=== PATIENT | male | born 1945 | race Caucasian/White ===

== ENCOUNTER 2016-10-15 14:21 | Inpatient (IN) | payer OTHER, MEDICAID ==
--- NOTE | 2016-10-15 14:35 | EDPHY ---
H & P Time Seen by Provider: 10/15/16 14:24 HPI/ROS: CHIEF COMPLAINT: Suicidal ideation HISTORY OF PRESENT ILLNESS: The patient is a 71-year-old male who presents emergency department with suicidal ideation. He presented to the [facility] complaining of heroin and opiate use. He is placed in their detox. While there he complains suicidal ideation. He states he wants to hang himself. Patient uses heroin regularly. He uses meth once a week. He denies overdose ingestion. He is not using alcohol. He placed on a mental health hold and sent to the emergency department. REVIEW OF SYSTEMS: My complete review of systems is negative except as mentioned in the HPI. Past Medical/Surgical History: Includes hypertension, peripheral neuropathy, chronic pain, BPH, depression Social history: The patient uses meth, heroin Physical Exam: Vitals noted GENERAL: No acute distress, alert. HEENT: Eyes normal to inspection, normal pharynx, no signs of dehydration. NECK: No thyromegaly, no lymphadenopathy, supple. RESPIRATORY: Clear to auscultation bilaterally, no rales, rhonchi or wheezing. CVS: Regular rate and rhythm, no rubs, murmurs, or gallops. ABDOMEN: Soft, nontender, nondistended, no organomegaly. BACK: Normal to inspection, no CVA tenderness. SKIN: Normal color, no rash, warm, dry. No pallor. Multiple lesions on bilateral forearms from injections. No erythema. No fluctuance. EXTREMITIES: No pedal edema, no calf tenderness, no Homans sign or cords, no joint swelling. NEURO/PSYCH: Alert and oriented, normal mood and affect, cooperative, normal motor sensory exam. No obvious cranial nerve deficit. Constitutional: Initial Vital Signs Temperature (C) 37.2 C 10/15/16 14:21 Heart Rate 62 10/15/16 14:21 Respiratory Rate 16 10/15/16 14:21 Blood Pressure 153/92 H 10/15/16 14:21 O2 Sat (%) 98 10/15/16 14:21 O2 Delivery Mode Room Air Allergies/Adverse Reactions: No Known Allergies Allergy (Unverified 10/15/16 14:31) Home Medications: Medication Instructions Recorded Acetaminophen [Tylenol 325mg (*)] 650 mg PO TID 10/15/16 Chlorthalidone [Chlorthalidone 25 25 mg PO DAILY 10/15/16 mg (*)] Escitalopram Oxalate [Lexapro] 10 mg PO DAILY 10/15/16 Gabapentin [Neurontin 400 MG (*)] 400 mg PO QID 10/15/16 Lisinopril [Zestril 40 mg (*)] 20 mg PO DAILY 10/15/16 Naproxen 500 mg PO BID PRN 10/15/16 QUEtiapine FUMARATE [Seroquel 100 150 mg PO HS 10/15/16 mg (*)] Sodium Cl Nasal [[facility] [place] (*)] 2 spray NS BID 10/15/16 Tamsulosin HCl [Flomax 0.4 MG (*)] 0.4 mg PO HS 10/15/16 traZODone [traZODONE 50MG (*)] 50 - 150 mg PO HS PRN 10/15/16 Medical Decision Making ED Course/Re-evaluation: In the emergency department I met the patient on arrival. I discussed the plan with the patient. He is aware he is on a mental health hold. He will have laboratory studies for medical clearance. I reviewed the patient's laboratory studies. Sodium was low 121. Potassium is 3.4. Chloride was low at 83. ASA, Tylenol negative. Patient's CBC was rejected. It will be resent. I discussed the results with the patient. Based on these labs normal saline 500 mL IV were given. Sinus rhythm at 58. First-degree AV block. Normal axis. No ST or T-wave abnormalities. I rechecked the patient on numerous occasions. He was stable during stay. I answered all his questions. Differential Diagnosis: My differential includes but is not limited to depression, suicidal ideation, meth abuse, heroin abuse, cellulitis, abscess Critical Care Time: Patient required 35 minutes of critical care time. This was exclusive of any unbundled procedure. This was due to the patient's depression, suicidal ideation, significant hyponatremia, need for frequent rechecks, admission to the ICU in consultation with the production director Dr. Brownlee. - Data Points Laboratory Results: Laboratory Results 10/15/16 16:20 10/15/16 15:07 10/15/16 10/15/16 10/15/16 16:20 16:12 15:07 WBC 14.36 10^3/uL H 10^3/uL (3.80-9.50) RBC 5.30 10^6/uL 10^6/uL (4.40-6.38) Hgb 16.9 g/dL g/dL (13.7-17.5) Hct 45.7 % % (40.0-51.0) MCV 86.2 fL fL (81.5-99.8) MCH 31.9 pg pg (27.9-34.1) MCHC 37.0 g/dL H g/dL (32.4-36.7) RDW 12.1 % % (11.5-15.2) Plt Count 353 10^3/uL 10^3/uL (150-400) MPV 9.9 fL fL (8.7-11.7) Neut % (Auto) 60.5 % % (39.3-74.2) Lymph % (Auto) 32.3 % % (15.0-45.0) Placer % (Auto) 5.6 % % (4.5-13.0) Eos % (Auto) 0.5 % L % (0.6-7.6) Baso % (Auto) 0.3 % % (0.3-1.7) Nucleat RBC Rel Count 0.0 % % (0.0-0.2) Absolute Neuts (auto) 8.68 10^3/uL H 10^3/uL (1.70-6.50) Absolute Lymphs (auto) 4.64 10^3/uL H 10^3/uL (1.00-3.00) Absolute Monos (auto) 0.81 10^3/uL H 10^3/uL (0.30-0.80) Absolute Eos (auto) 0.07 10^3/uL 10^3/uL (0.03-0.40) Absolute Basos (auto) 0.05 10^3/uL 10^3/uL (0.02-0.10) Absolute Nucleated RBC 0.00 10^3/uL 10^3/uL (0-0.01) Immature Gran % 0.8 % % (0.0-1.1) Immature Gran # 0.11 10^3/uL H 10^3/uL (0.00-0.10) Platelet Estimate ADEQUATE (ADEQ) Sodium 121 mEq/L L mEq/L (134-144) Potassium 3.4 mEq/L L mEq/L (3.5-5.2) Chloride 83 mEq/L L mEq/L (97-110) Carbon Dioxide 25 mEq/l mEq/l (22-31) Anion Gap 13 mEq/L mEq/L (8-16) BUN 12 mg/dL mg/dL (7-23) Creatinine 1.0 mg/dL mg/dL (0.7-1.3) Estimated GFR > 60 Glucose 119 mg/dL H mg/dL (70-100) Calcium 10.0 mg/dL mg/dL (8.5-10.4) Salicylates < 1.0 mg/dL L mg/dL (2.0-20.0) Urine Opiates Screen NEGATIVE (NEGATIVE) Acetaminophen < 10 mcg/mL L mcg/mL (10.0-30.0) Urine Barbiturates NEGATIVE (NEGATIVE) Ur Phencyclidine Scrn NEGATIVE (NEGATIVE) Ur Amphetamine Screen NEGATIVE (NEGATIVE) U Benzodiazepines Scrn NEGATIVE (NEGATIVE) Urine Cocaine Screen NEGATIVE (NEGATIVE) U Marijuana (THC) Screen NEGATIVE (NEGATIVE) Ethyl Alcohol < 10 mg/dL mg/dL (0-10) 10/15/16 15:07 WBC REJ RBC REJ Hgb REJ Hct REJ MCV REJ MCH REJ MCHC REJ RDW REJ Plt Count REJ MPV REJ Neut % (Auto) REJ Lymph % (Auto) REJ Placer % (Auto) REJ Eos % (Auto) REJ Baso % (Auto) REJ Nucleat RBC Rel Count REJ Absolute Neuts (auto) REJ Absolute Lymphs (auto) REJ Absolute Monos (auto) REJ Absolute Eos (auto) REJ Absolute Basos (auto) REJ Absolute Nucleated RBC REJ Immature Gran % REJ Immature Gran # REJ Platelet Estimate Sodium Potassium Chloride Carbon Dioxide Anion Gap BUN Creatinine Estimated GFR Glucose Calcium Salicylates Urine Opiates Screen Acetaminophen Urine Barbiturates Ur Phencyclidine Scrn Ur Amphetamine Screen U Benzodiazepines Scrn Urine Cocaine Screen U Marijuana (THC) Screen Ethyl Alcohol Medications Given: Discontinued Medications Sodium Chloride (Ns) 500 mls @ 0 mls/hr IV ONCE ONE PRN Reason: Wide Open Stop: 10/15/16 16:16 Last Admin: 10/15/16 17:13 Dose: 500 mls Ibuprofen (Motrin) 600 mg PO ONCE ONE Stop: 10/15/16 16:07 Last Admin: 10/15/16 16:13 Dose: 600 mg Departure - Departure Disposition: [facility] Acute Clinical Impression: Suicidal ideation, Hyponatremia Depression Qualifiers: Depression Type: unspecified Qualified Code(s): F32.9 - Major depressive disorder, single episode, unspecified Condition: Good
[2016-10-15 15:46] LABS: ANION GAP 13 mEq/L (8-16); CARBON DIOXIDE 25 mEq/l (22-31); CHLORIDE 83 mEq/L (97-110); ETHANOL SERUM < 10 mg/dL (0-10); GLOMERULAR FILTRATION RATE > 60; GLUCOSE 119 mg/dL (70-100); POTASSIUM 3.4 mEq/L (3.5-5.2); SALICYLATE < 1.0 mg/dL (2.0-20.0); SODIUM 121 mEq/L (134-144)
[2016-10-15] MEDS ORDERED: IBUPROFEN 600 MG TAB PO ONE (16:06)
[2016-10-15] MEDS ORDERED: NS 500 ML IV ONE ×2 (16:15→21:20)
--- NOTE | 2016-10-15 16:40 | CPEKG ---
Heart Rate: 58 RR Interval: 1034 P-R Interval: 248 QRSD Interval: 112 QT Interval: 484 QTC Interval: 476 P [place]: 21 QRS [place]: 52 T Wave [place]: 41 EKG Severity - ABNORMAL ECG - EKG Impression: SINUS RHYTHM EKG Impression: ATRIAL PREMATURE COMPLEX EKG Impression: FIRST DEGREE AV BLOCK EKG Impression: NONSPECIFIC INTRAVENTRICULAR CONDUCTION DELAY Electronically Signed By: Juan Perales 17-Oct-2016 09:02:10
[2016-10-15] MEDS ORDERED: ONDANSETRON 4 MG/2 ML VIAL IVP PRN (17:04)
[2016-10-15] MEDS ORDERED: ONDANSETRON DISINTEGRATING 4 MG TAB PO PRN (17:04)
[2016-10-15] MEDS ORDERED: PROMETHAZINE HCL 25 MG/ML INJ IVP PRN (17:04)
[2016-10-15 17:13] LABS: % IMMATURE GRANULYOCYTES 0.8 % (0.0-1.1); ABSOLUTE IMMATURE GRANULOCYTES 0.11 10^3/uL (0.00-0.10); ADD DIFF? NO; HEMATOCRIT 45.7 % (40.0-51.0); HEMOGLOBIN 16.9 g/dL (13.7-17.5); MEAN CELL HEMOGLOBIN 31.9 pg (27.9-34.1); MEAN CELL VOLUME 86.2 fL (81.5-99.8); MEAN PLATELET VOLUME 9.9 fL (8.7-11.7); PLATELET COUNT 353 10^3/uL (150-400); RED CELL DISTRIBUTION WIDTH 12.1 % (11.5-15.2)
[2016-10-15 17:14] LABS: ADD SCAN? NO
[2016-10-15 17:15] LABS: ADD MORPH? NO
[2016-10-15 17:16] LABS: PLATELET ESTIMATE ADEQUATE (ADEQ)
--- NOTE | 2016-10-15 17:52 | GHP ---
[f rep st] HISTORY AND PHYSICAL DATE OF ADMISSION: 10/15/2016 The patient is a pleasant 71-year-old gentleman, history of hypertension, neuropathy, and heroin use , who complained of suicidality at the and they brought him here. He said he wanted to h ang himself. When I speak with the patient, he is emotional, a bit sad. It sounds like his drug use has led to a loss of his home and friends, and mostly the whole community of his life. He attributes the heroin use to a severe peripheral neuropathy, for which he had been taking oral opiates, and then a change in provider led to lower doses. He also notes using meth once a week. When I speak with the patient, he feels somewhat confused. I t sounds like he has had some soft stools, has not been eating or drinking very well. I think he is currently homeless. He has no previous history of homelessness. He does take a thiazide diuretic. He has no previous history of hyponatremia. REVIEW OF SYSTEMS: Complete 10-point review of systems conducted, negative except as noted in the H PI. PAST MEDICAL HISTORY: Heroin use, neuropathy, hypertension, BPH. ALLERGIES: No known drug allergies. MEDICATIONS: Chlorthalidone, Flomax, Lexapro, lisinopril, Seroquel. It is not clear that he is on Neurontin or other such medications. 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 FAMILY HISTORY: Reviewed and unremarkable. PHYSICAL EXAMINATION: VITAL SIGNS: Temp 37.2, blood pressure 150/90, pulse 60, breathing 16 times a minute, 98% on room air. GENERAL: No acute distress. HEENT: Sclerae anicteric. Oropharynx rogelio ar. Mucous membranes moist. NECK: Supple without lymphadenopathy or JVD. LUNGS: Clear to auscul tation bilaterally. HEART: S1, S2. ABDOMEN: Soft, nontender, nondistended. LOWER EXTREMITIES: No edema. Calves nontender. SKIN: Without rash. NEUROLOGIC: Nonfocal. LABORATORY DATA: Sodium 121, potassium 3.4, chloride 83, bicarb 25, BUN 12, creatinine 1.0, glucose 119. Tox screen negative, including Tylenol, salicylates, ethanol. CBC is pending. EKG, interpre césar by me, shows sinus at 58, with normal axis and intervals. There are no acute ST or T-wave gomez es. I discussed the case with Dr. Pauline See. ASSESSMENT AND PLAN: This is a 71-year-old gentleman with heroin use and suicidality, admitted with suicidality and hyponatremia. 1. Hyponatremia. This is euvolemic hyponatremia secondary to poor solute intake is my belief. He received some IV fluids in the emergency department, about 500 cc of normal saline was written for. I have ordered a stat CT. I have ordered a stat chem 7. We will follow up on that. I suspect it will be higher. If it is considerably higher, we may give some hypotonic fluids. If it is not much higher, we will just allow the patient to eat and drink and follow it on a q.6-hour basis. It is u nclear the role that this playing in his suicidality. This is an indication to stop his thiazide pe rmanently. 2. Suicidality. M1 hold. Not medically cleared at this point. When his sodium is corrected, it w ill. 3. Hyponatremia. 4. Neuropathy. We will continue his medications that have been reconciled. 5. Heroin use. The patient is currently not in withdrawal. We will follow. 6. Prophylaxis. Pharmacologic prophylaxis indicated. DISPOSITION: Inpatient status. /[id number]/MODL
[2016-10-15 18:44] LABS: ANION GAP 11 mEq/L (8-16); CALCIUM 9.1 mg/dL (8.5-10.4); CARBON DIOXIDE 24 mEq/l (22-31); CHLORIDE 85 mEq/L (97-110); GLOMERULAR FILTRATION RATE > 60; GLUCOSE 133 mg/dL (70-100); POTASSIUM 2.9 mEq/L (3.5-5.2); SODIUM 120 mEq/L (134-144)
[2016-10-15] MEDS ORDERED: traZODone 50 MG TAB PO PRN (19:05)
[2016-10-15] MEDS ORDERED: PROTOCOL POTASSIUM 1 DOSE MISC PRN (19:06)
[2016-10-15] MEDS ORDERED: MAGNESIUM SULF 2 GM/WATER 50 ML IV ONE (19:07)
[2016-10-15] MEDS ORDERED: LISINOPRIL 40 MG TAB PO SCH (19:15)
[2016-10-15] MEDS ORDERED: POTASSIUM CL 10 MEQ TAB PO ONE (19:17)
[2016-10-15] MEDS: ACETAMINOPHEN 325 MG TAB PO PRN (19:43)
[2016-10-15] MEDS: GABAPENTIN 400 MG CAP PO SCH (19:43)
[2016-10-15] MEDS: SODIUM CL NASAL 45 ML BTL NS SCH (19:43)
[2016-10-15] MEDS: oxyCODONE IR 15 MG TAB PO PRN (19:43)
[2016-10-15] MEDS: TAMSULOSIN HCL 0.4 MG CAP PO SCH (19:47)
[2016-10-15] MEDS ORDERED: NS BOLUS 500 ML (Wide open) IV ONE (21:20)
[2016-10-15 23:18] LABS: CALCIUM 9.3 mg/dL (8.5-10.4); CARBON DIOXIDE 25 mEq/l (22-31); CHLORIDE 84 mEq/L (97-110); GLOMERULAR FILTRATION RATE > 60; GLUCOSE 140 mg/dL (70-100); POTASSIUM 2.9 mEq/L (3.5-5.2)
[2016-10-15 23:26] LABS: ANION GAP 11 mEq/L (8-16); SODIUM 120 mEq/L (134-144)
[2016-10-16] MEDS: QUEtiapine FUMARATE 100 MG TAB PO SCH ×2 (00:49→23:48)
[2016-10-16] MEDS ORDERED: POTASSIUM CL 20 MEQ/15 ML UDCUP PO ONE (01:00)
[2016-10-16] MEDS ORDERED: POTASSIUM Cl (KCl) 40 MEQ in NS 1,000 ML IV SCH (01:30)
[2016-10-16 06:14] LABS: ANION GAP 8 mEq/L (8-16); CALCIUM 9.1 mg/dL (8.5-10.4); CARBON DIOXIDE 25 mEq/l (22-31); CHLORIDE 90 mEq/L (97-110); GLOMERULAR FILTRATION RATE > 60; GLUCOSE 85 mg/dL (70-100); POTASSIUM 3.3 mEq/L (3.5-5.2); SODIUM 123 mEq/L (134-144)
[2016-10-16] MEDS ORDERED: POTASSIUM CL 10 MEQ TAB PO ONE ×2 (06:22→21:04)
[2016-10-16] MEDS: GABAPENTIN 400 MG CAP PO SCH ×4 (06:25→21:15)
[2016-10-16] MEDS: oxyCODONE IR 15 MG TAB PO PRN ×4 (06:50→21:14)
[2016-10-16] MEDS: ESCITALOPRAM OXALATE 10 MG TAB PO SCH (10:10)
[2016-10-16] MEDS: ENOXAPARIN 40 MG/0.4 ML SYR SC SCH (10:10)
[2016-10-16] MEDS: SODIUM CL NASAL 45 ML BTL NS SCH ×2 (10:10→21:15)
--- NOTE | 2016-10-16 11:24 | HOSPPROG ---
Hospitalist Progress Note Assessment/Plan: 71-year-old admitted with hyponatremia and suicidal ideation. Most likely this is from [facility], likely medication related as he is on Seroquel, Lexapro and chlorthalidone all of which can cause hyponatremia. Discussed and multi disciplinary rounds # suicidal ideation, patient is not actively suicidal however will likely need a TLC evaluation prior to discharge when he is medically cleared. Continue suicidal watch # hyponatremia: Likely secondary to SIADH, patient is on multiple medications which can contribute to hyponatremia including Seroquel, Lexapro and chlorthalidone. Urine osmolality is low, with a normal sized urine sodium and a low serum osmolality * DC IV fluids * Place on fluid restriction * Continue to monitor sodium level * Discontinue chlorthalidone * Consider holding Lexapro or Seroquel if no improvement in sodium # chronic pain from neuropathy. Patient is exhibiting some narcotic-seeking behavior. He also has a history of active heroin use. * At this time will continue his home med regimen for the oxycodone * Follow up with his primary care provider or he can try to establish care with a pain clinic if he wishes as an outpatient # chronic narcotic dependency, see above # BPH, on Flomax # depression: Currently on Lexapro and Seroquel. Unclear who follows him for this. Subjective: Patient complaining of pain in his hands for neuropathy and wants pain medications.. He says the pain is making him suicidal Objective: Vital Signs Temp Pulse Resp BP Pulse Ox 36.5 C 61 15 129/83 H 96 10/16/16 08:15 10/16/16 09:54 10/16/16 09:54 10/16/16 09:54 10/16/16 09:54 Laboratory Results 10/16/16 05:25 10/15/16 10/16/16 10/17/16 05:59 05:59 05:59 Intake Total 2550 220 Output Total 2975 1280 Balance -425 -1060 - Physical Exam Constitutional: no apparent distress Eyes: PERRL, anicteric sclera, EOMI Ears, Nose, Mouth, Throat: moist mucous membranes Cardiovascular: regular rate and rhythym, no murmur, rub, or gallop Respiratory: no respiratory distress, no rales or rhonchi, clear to auscultation Gastrointestinal: normoactive bowel sounds, soft, non-tender abdomen Genitourinary: no bladder fullness Skin: warm, normal color Musculoskeletal: full muscle strength Neurologic: AAOx3 Psychiatric: interacting appropriately, not anxious ICD10 Worksheet Patient Problems: Problems Problem Status Onset Depression Acute Suicidal ideation Acute Hyponatremia Acute
[2016-10-16 14:18] LABS: POTASSIUM 3.6 mEq/L (3.5-5.2)
[2016-10-16] MEDS ORDERED: SODIUM CHLORIDE 1,000 MG TAB PO SCH (18:00)
[2016-10-16 18:31] LABS: POTASSIUM 3.8 mEq/L (3.5-5.2); SODIUM 127 mEq/L (134-144)
--- NOTE | 2016-10-16 19:28 | GCON ---
[f rep st] CONSULTATION CRITICAL CARE CONSULTATION. DATE OF CONSULTATION: 10/16/2016 HISTORY OF PRESENT ILLNESS: The patient is a 71-year-old male with a history of polysubstance abuse and suicidal attempts in the past who expressed suicidal ideation, and was brought to the hospital. At that time, he was found to have a sodium of 120 on arrival, and this was thought to be due to d ehydration. He was treated with IV fluids and is slowly getting better. His suicidal ideation has abated, but he remains on an M1 hold pending clearance from a medical perspective. In terms of symptoms, he was quite lucid at the time of my evaluation. He was mostly concerned abou t chronic pain control and did not speak much about his long-term drug addiction and heroin abuse. He was taking chlorthalidone diuretic, but no known previous hyponatremia. The chronicity of his so dium is unknown at this time. REVIEW OF SYSTEMS: Otherwise negative. PAST MEDICAL HISTORY: 1. Polysubstance abuse, including heroin, oxycodone and methamphetamine. 2. Neuropathy. 3. Hypertension. 4. Benign prostatic hypertrophy. ALLERGIES: None. SOCIAL HISTORY: He is currently homeless. Unknown smoking and alcohol history. FAMILY HISTORY: Unremarkable. PHYSICAL EXAM: VITAL SIGNS: He was afebrile. Blood pressure 129/83, heart rate 61, respirations 1 5. Oxygen saturation 96% on room air. GENERAL: He was awake and alert. Very pleasant, in no appa rent distress, and spoke in full sentences without using any accessory muscles for breathing. HEENT : Pupils equally round, reactive to light. Nonicteric and noninjected. Mucous membranes are moist without erythema or exudate. NECK: Supple without adenopathy or jugular vein distention. Breath sounds clear to auscultation bilaterally without wheezes, rubs, rales. HEART: Regular rate and rhy thm without murmurs, rubs, gallops. ABDOMEN: Soft, nontender, nondistended without hepatosplenomeg king. EXTREMITIES: No clubbing, cyanosis, or edema. NEUROLOGICAL: Exam was nonfocal, though he di d express pain in both of his distal upper extremities and lower extremities that he attributed to a history of a bicycle racing. CURRENT MEDICATIONS: Include Lovenox, Lexapro, Neurontin, Zofran, oxycodone 15 mg q.4 hours p.r.n., Phenergan, Seroquel, Flomax and trazodone. LABORATORY DATA: Sodium was 120 at 6:00 p.m. yesterday. It is 129 at about 12:30 today. The rest of his basic metabolic panel was notable for hypokalemia, but has otherwise been improving. No moni l failure. Serum osmolality was 272. Urine osmolality 119. Tox screen was negative. ASSESSMENT/PLAN: 1. Hyponatremia. I suspect this is diuretic-related, though it is difficult to rule out SIADH comp letely. He is hypoosmolar which should be hyperosmolar in the setting of pure diuretics, and his ur ine osmolality is not maximally dilute, but it is awfully close to 100. He was getting normal salin e, and that has subsequently been discontinued in favor of a fluid restriction at this time. His so dium did correct fairly rapidly and probably more than I would expect from SIADH alone. The concern , of course, is that he is correcting too rapidly, although his sodium was not horribly low (meaning less than 110) at the time of admission, but should not correct more than about 10 mEq in the first 24 hours, and it is at 9 for the first 18 hours. A Followup sodium is pending at this time. We lakisha y consider a renal consult if this does not get any better. 2. Suicidal ideation. He is on an M1 hold. Now we are awaiting psychiatry evaluation. I think th is will happen once the sodium is corrected normally. /[id number]/MODL
[2016-10-16] MEDS: TAMSULOSIN HCL 0.4 MG CAP PO SCH (21:15)
[2016-10-16] MEDS: ACETAMINOPHEN 325 MG TAB PO PRN (23:50)
[2016-10-17] MEDS ORDERED: oxyCODONE IR 15 MG TAB PO ONE (01:15)
[2016-10-17] MEDS: oxyCODONE IR 15 MG TAB PO PRN ×2 (05:49→13:36)
[2016-10-17] MEDS: GABAPENTIN 400 MG CAP PO SCH ×2 (05:49→10:04)
[2016-10-17 06:54] LABS: POTASSIUM 3.8 mEq/L (3.5-5.2)
[2016-10-17 09:18] LABS: ANION GAP 11 mEq/L (8-16); CALCIUM 9.5 mg/dL (8.5-10.4); CARBON DIOXIDE 22 mEq/l (22-31); CHLORIDE 97 mEq/L (97-110); CREATININE 1.2 mg/dL (0.7-1.3); GLOMERULAR FILTRATION RATE > 60; GLUCOSE 81 mg/dL (70-100); POTASSIUM 3.9 mEq/L (3.5-5.2); SODIUM 130 mEq/L (134-144)
[2016-10-17 09:59] VITALS: TEMP 99
[2016-10-17] MEDS: SODIUM CL NASAL 45 ML BTL NS SCH (10:04)
[2016-10-17] MEDS: ENOXAPARIN 40 MG/0.4 ML SYR SC SCH (10:04)
[2016-10-17] MEDS: ESCITALOPRAM OXALATE 10 MG TAB PO SCH (10:04)
[2016-10-17 13:19] VITALS: BP 136/75; PULSE 65; RESP 12; O2SAT 98
--- NOTE | 2016-10-17 13:32 | GDS ---
[f rep st] DISCHARGE SUMMARY DIAGNOSES: 1. Suicidal ideation. 2. Hyponatremia. 3. Hypertension. 4. Probable depression. 5. Chronic neuropathic pain in his hands. HOSPITAL COURSE: The patient is a 71-year-old, who came to the ER complaining of suicidal ideation. He said he was in pain and was going to kill himself because of the pain. He was admitted to the hospital on an M1 hold. He was found to be hyponatremic and placed on a fluid restriction. Over course of his hospitalization, his sodium normalized, his chlorthalidone was stopped as this can c ause hyponatremia. His blood pressure remained fairly stable off the chlorthalidone. His Lexapro, trazodone, and Seroquel were continued. Once his sodium normalized, [facility] They felt he was cleared to go home and was no longer a danger to himself. His M1 hold was dis continued, and he was scheduled to follow with [facility] right after the hospitalizatio n. He will be given a cab voucher to make the transition there. Regarding his pain control, he georges l continue his usual medications. He was given no prescriptions at the time of discharge. CONDITION ON DISCHARGE: Good. Vital signs are stable. He is alert and oriented. His sodium is wi thin normal limits. DISCHARGE MEDICATIONS: Please see discharge medication form. His chlorthalidone was discontinued. He was not started on other blood pressure medicines as his blood pressures typically run 120-140 s ystolic. He can follow up with his primary care provider for further evaluation of his hypertension . FOLLOWUP INSTRUCTIONS: He will be sent over to [facility] today. He also needs to sche dule a followup with his PCP for blood pressure control and hyponatremia recheck and pain control. Total time spent with patient on day of discharge in coordination of care is 35 minutes. /[id number]/MODL
== END 2016-10-17 15:03 | disposition home or self-care (01) | DRG 644 ==
LOC: EDUNIT# → EEVIPCON 17:04 → OBSVTOIN 17:04 → F2N 17:55
PROVIDERS: ADMIT Internal Medicine; ATTEND Internal Medicine
DX: E22.2 Syndrome of inappropriate secretion of antidiuretic hormone (principal); F33.9 Major depressive disorder, recurrent, unspecified; G62.9 Polyneuropathy, unspecified; G89.29 Other chronic pain; I10 Essential (primary) hypertension; F15.20 Other stimulant dependence, uncomplicated; F11.90 Opioid use, unspecified, uncomplicated; Z59.0 Homelessness
CPT/HCPCS: 80305; G0480; J1650